=== PATIENT | male | born 1980 | race Caucasian/White ===

== ENCOUNTER 2017-12-27 14:59 | Emergency (ER) | payer SELFPAY ==
[2017-12-27] MEDS ORDERED: NORMAL SALINE 1000 ML 1,000 ML IV ONE (16:28)
--- NOTE | 2017-12-27 16:34 | ER Document Report ---
ED Medical Screen (RME) - General Chief Complaint: Leg Pain Stated Complaint: WEAKNESS, LEG PAIN, FEVER Time Seen by Provider: 12/27/17 16:28 Notes: Patient states that he has a history of IV drug abuse and is currently on Suboxone. He states he comes in today because he has severe bilateral calf pain. He also states recently had a fever of 104 and was started on antibiotics. He states he was not told what the infection was however he went to an chief marketing officer with eye pain. He states the chief marketing officer told him that he had shingles around his left eye and that he should stop the antibiotic and start taking an antiviral. On exam patient is noticed to have a heart murmur. Mom also states that recently patient has had some confusion. TRAVEL OUTSIDE OF THE [place] IN LAST 30 DAYS: No - Related Data Allergies/Adverse Reactions: No Known Allergies Allergy (Verified 12/27/17 15:01) Past Medical History - Social History Chew tobacco use (# tins/day): No Frequency of alcohol use: None Drug Abuse: None Renal/ Medical History: Denies: Hx Peritoneal Dialysis - Immunizations Hx Diphtheria, Pertussis, Tetanus Vaccination: Yes Physical Exam - Vital signs Vitals: Temp Pulse Resp BP Pulse Ox 99.1 F 110 H 18 116/55 L 100 12/27/17 15:11 12/27/17 15:11 12/27/17 15:11 12/27/17 15:11 12/27/17 15:11 Course - Vital Signs Vital signs: Temp Pulse Resp BP Pulse Ox 99.1 F 110 H 18 116/55 L 100 12/27/17 15:11 12/27/17 15:11 12/27/17 15:11 12/27/17 15:11 12/27/17 15:11 Doctor's Discharge - Discharge Referrals: MATT HUNTLEY MD [Primary Care Provider] - Follow up as needed
[2017-12-27 17:38] LABS: APPEARANCE,URINE CLEAR; BILIRUBIN,URINE NEGATIVE (NEGATIVE); COLOR,URINE YELLOW; GLUCOSE, URINE NEGATIVE (NEGATIVE); KETONES,URINE NEGATIVE (NEGATIVE); LEUKOCYTE ESTERASE,URINE NEGATIVE (NEGATIVE); NITRITE,URINE NEGATIVE (NEGATIVE); PROTEIN,URINE NEGATIVE (NEGATIVE); URINE SPECIFIC GRAVITY 1.015
[2017-12-27 18:07] LABS: ABSOLUTE BASOPHILS # (AUTO) 0.1 10^3/uL (0.0-0.2); ABSOLUTE EOSINOPHILS # (AUTO) 0.1 10^3/uL (0.0-0.6); ABSOLUTE LYMPHOCYTES (AUTO) 1.4 10^3/uL (0.5-4.7); ABSOLUTE MONOCYTES (AUTO) 0.9 10^3/uL (0.1-1.4); ABSOLUTE NEUT (AUTO) 11.4 10^3/uL (1.7-8.2); BASOPHILS % (AUTO) 0.4 % (0-2); EOSINOPHILS % (AUTO) 0.9 % (0-6); HEMATOCRIT 36.7 % (37.9-51.0); LYMPHOCYTES % (AUTO) 9.8 % (13-45); MEAN CORPUSCULAR HEMOGLOBIN 28.2 pg (27.0-33.4); MEAN CORPUSCULAR HGB CONC 32.5 g/dL (32.0-36.0); MEAN CORPUSCULAR VOLUME 87 fl (80-97); MONOCYTES % (AUTO) 6.7 % (3-13); PLATELET COUNT 372 10^3/uL (150-450); RED BLOOD COUNT 4.23 10^6/uL (4.35-5.55); RED CELL DISTRIBUTION WIDTH 13.2 % (11.5-14.0); SEGMENTED NEUTROPHILS % (AUTO) 82.2 % (42-78); TOTAL CELLS COUNTED % (AUTO) 100 %; WHITE BLOOD COUNT 13.9 10^3/uL (4.0-10.5)
[2017-12-27 18:08] LABS: VENOUS BLOOD BASE EXCESS 4.3 mmol/L; VENOUS BLOOD HCO3 30.4 mmol/L (20-32); VENOUS BLOOD PH 7.4 (7.30-7.42)
[2017-12-27 18:24] LABS: ALANINE AMINOTRANSFERASE 18 U/L (21-72); ALBUMIN 3.5 g/dL (3.5-5.0); ALKALINE PHOSPHATASE 68 U/L (38-126); ANION GAP 13 (5-19); ASPARTATE AMINO TRANSFERASE 14 U/L (17-59); BILIRUBIN,DIRECT 0.1 mg/dL (0.0-0.4); BILIRUBIN,TOTAL 0.6 mg/dL (0.2-1.3); BLOOD UREA NITROGEN 8 mg/dL (7-20); CALCIUM 9.2 mg/dL (8.4-10.2); CARBON DIOXIDE 29 mmol/L (22-30); CHLORIDE 97 mmol/L (98-107); GLUCOSE 87 mg/dL (75-110); POTASSIUM 4.3 mmol/L (3.6-5.0); SODIUM 139.3 mmol/L (137-145); TOTAL PROTEIN 6.6 g/dL (6.3-8.2)
[2017-12-27 18:27] LABS: CREATINE KINASE < 20 U/L (55-170)
[2017-12-27] MEDS ORDERED: MORPHINE SULFATE 10 MG/ML INJ IV PRN (19:53)
--- NOTE | 2017-12-27 19:58 | ER Document Report ---
ED General - General Chief Complaint: Leg Pain Stated Complaint: WEAKNESS, LEG PAIN, FEVER Time Seen by Provider: 12/27/17 16:28 Notes: Patient is a 37-year-old male with a past medical history of IV heroin use currently in remission who presents with 3 weeks of intermittent fever, several days of progressively worsening bilateral lower extremity pain. Patient states that at his popliteal pulses bilaterally he has a severe, constant, throbbing pain. Nothing improves or worsens his pain. He denies any history of similar symptoms in the past. He reports that his intermittent had fevers over the last 3 weeks to 104.2F. He has associated nausea but no vomiting. He does admit to intermittent shortness of breath worsened by exertion. He has not seen his primary care doctor regarding these concerns. He has no prior cardiac history. TRAVEL OUTSIDE OF THE [place] IN LAST 30 DAYS: No - Related Data Allergies/Adverse Reactions: No Known Allergies Allergy (Verified 12/27/17 15:01) Past Medical History - General Information source: Patient, Relative - Social History Smoking Status: Current Every Day Smoker Chew tobacco use (# tins/day): No Frequency of alcohol use: None Drug Abuse: None, Heroin Lives with: Parents Family History: Reviewed & Not Pertinent Patient has suicidal ideation: No Patient has homicidal ideation: No Renal/ Medical History: Denies: Hx Peritoneal Dialysis - Immunizations Hx Diphtheria, Pertussis, Tetanus Vaccination: Yes Review of Systems - Review of Systems Notes: Constitutional: Negative for fever. HENT: Negative for sore throat. Eyes: Negative for visual changes. Cardiovascular: Negative for chest pain. Respiratory: Negative for shortness of breath. Gastrointestinal: Negative for abdominal pain, vomiting or diarrhea. Genitourinary: Negative for dysuria. Musculoskeletal: Negative for back pain. Skin: Negative for rash. Neurological: Negative for headaches, weakness or numbness. 10 point ROS negative except as marked above and in HPI. Physical Exam - Vital signs Vitals: Temp Pulse Resp BP Pulse Ox 99.1 F 110 H 18 116/55 L 100 12/27/17 15:11 12/27/17 15:11 12/27/17 15:11 12/27/17 15:11 12/27/17 15:11 Notes: PHYSICAL EXAMINATION: GENERAL: Appears extremely uncomfortable, writhing around the bed. HEAD: Atraumatic, normocephalic. EYES: Pupils equal round and reactive to light, extraocular movements intact, sclera anicteric, conjunctiva are normal. ENT: nares patent, oropharynx clear without exudates. Moderately dry mucous membranes. NECK: Normal range of motion, supple without lymphadenopathy LUNGS: Breath sounds clear to auscultation bilaterally and equal. No wheezes rales or rhonchi. HEART: Regular tachycardia, systolic ejection murmur 4 out of 6 ABDOMEN: Soft, nontender, normoactive bowel sounds. No guarding, no rebound. No masses appreciated. EXTREMITIES: Normal range of motion, trace edema in the bilateral lower extremities. Exquisite pain on palpation of the popliteal fossa bilaterally NEUROLOGICAL: No focal neurological deficits. Moves all extremities spontaneously and on command. PSYCH: Moderately anxious SKIN: Warm, Dry, normal turgor, no rashes or lesions noted. Course - Re-evaluation Re-evalutation: 12/27/17 19:56 This is a unusual presentation of a very ill-appearing 37-year-old male with a history of IV drug abuse, new onset murmur that appears to be loudest over the tricuspid vs aortic valave. This is very worrisome for possible endocarditis. Patient has had a fever up to 104.2F most recently 3 days ago. He is afebrile here although does have notable tachycardia in the 120s at time of my assessment. He has had zoster of the left eye and periorbital region and is currently on acyclovir for that. He states his last IV drug use was approximately 2 months ago and is currently on Suboxone. Patient has marked pain in the popliteal fossa bilaterally and is writhing around in pain in the bed. This to be an unusual presentation of septic emboli but is a consideration. Does not have any significant lower extremity edema to suggest a DVT but I will proceed with a venous Doppler to further assess. CK is normal and does not suggest an acute rhabdomyolysis or compartment syndrome. Will obtain 3 sets of blood cultures, await results of venous Doppler, add on troponin and BNP, obtain a chest x-ray, provide analgesia, IV fluids and continue to reassess the patient frequently. 12/27/17 20:56 Patient continues to have significant pain despite morphine analgesia. His labs are returning and are increasingly worrisome for endocarditis. He has an elevated proBNP as well as an elevated troponin. This would be extraordinarily unusual in an otherwise healthy 37-year-old male who is not complaining of any chest pain. Am awaiting an echocardiogram and a venous Doppler of bilateral lower extremities. He has been started on cefepime and vancomycin. I have contacted [facility] for transfer as we do not have infectious disease support, no current cardiology coverage, and no thoracic surgery. 12/27/17 21:21 I placed a left EJ to attempt get more blood for additional cultures. There is enough blood to obtain an additional culture. The line flows well but I am unable to draw back a significant quantity of blood. This will make to total blood cultures and ideally I would like a third but I do not want to delay antibiotics any further so we will begin vancomycin and cefepime at this time. Awaiting callback from [facility]. The patient's pain is improved at this time with 8 milligrams of morphine. He remains tachycardic but without hypotension or altered mental status. 12/27/17 21:30 I have spoken to Dr. Matthews the hospitalist at [facility] and he has accepted the patient for transfer. He has requested that we withhold antibiotics until the patient arrives [facility] unless there will be a delay of transfer to [facility]. The transfer center coordinator has informed that they do not currently have any beds and they do anticipate a significant delay in care. Will proceed with IV antibiotics if there is any significant delay. 12/27/17 22:39 Dopplers of the bilateral lower extremities show arterial occlusions in the bilateral popliteal arteries, consistent with showering emboli for the left side of the heart. mechanical maintenance technician also notes vegitations vs bicuspid aortic valve. Lovenox will be started. I have called and provided an update to [facility]. 12/28/17 02:14 Patient has remained hemodynamically within acceptable limits. Transport has arrived for patient transfer. He is appropriate for transport at this time. - Vital Signs Vital signs: Temp Pulse Resp BP Pulse Ox 99.8 F 110 H 23 H 133/65 H 98 12/28/17 01:51 12/27/17 15:11 12/28/17 01:01 12/28/17 01:01 12/28/17 01:01 - Laboratory Result Diagrams: 12/27/17 17:51 12/27/17 17:51 Laboratory results interpreted by me: 12/27/17 12/27/17 12/27/17 16:50 17:51 17:51 WBC 13.9 H RBC 4.23 L Hgb 12.0 L Hct 36.7 L Seg Neutrophils % 82.2 H Lymphocytes % 9.8 L Absolute Neutrophils 11.4 H Chloride 97 L AST 14 L ALT 18 L Creatine Kinase < 20 L NT-Pro-B Natriuret Pep Urine Blood SMALL H Urine Urobilinogen 2.0 H 12/27/17 17:51 WBC RBC Hgb Hct Seg Neutrophils % Lymphocytes % Absolute Neutrophils Chloride AST ALT Creatine Kinase NT-Pro-B Natriuret Pep 2260 H Urine Blood Urine Urobilinogen - Diagnostic Test Radiology reviewed: Image reviewed, Reports reviewed Radiology results interpreted by me: 12/27/17 21:31 Chest x-ray: No acute infiltrate or pneumothorax - EKG Interpretation by Me Additional EKG results interpreted by me: 12/27/17 21:32 Sinus tachycardia. Rate 109. LVH. No ST elevations or depressions. QTC is 475. Critical Care Note - Critical Care Note Total time excluding time spent on procedures (mins): 48 Comments: Critical care time spent obtaining history from patient or surrogate, discussions with consultants, development of treatment plan with patient or surrogate, evaluation of patient's response to treatment, examination of patient , ordering and performing treatments and interventions, ordering and review of laboratory studies, re-evaluation of patient's condition, ordering and review of radiographic studies and review of old charts Discharge - Discharge Clinical Impression: Occlusion of popliteal artery Endocarditis Qualifiers: Endocarditis type: infective Infective endocarditis organism: bacterial Chronicity: acute Qualified Code(s): I33.0 - Acute and subacute infective endocarditis Congestive heart failure Qualifiers: Heart failure type: unspecified Heart failure chronicity: acute Qualified Code( s): I50.9 - Heart failure, unspecified Sepsis Qualifiers: Sepsis type: sepsis due to unspecified organism Qualified Code(s): A41.9 - Sepsis, unspecified organism Condition: Fair Disposition: [facility] Referrals: MATT HUNTLEY MD [Primary Care Provider] - Follow up as needed
[2017-12-27] MEDS ORDERED: NORMAL SALINE 1000 ML 500 ML IV ONE (20:04)
--- NOTE | 2017-12-27 20:49 | RADIOLOGY REPORT (SQ) ---
EXAM DESCRIPTION: CHEST SINGLE VIEW COMPLETED DATE/TIME: 12/27/2017 8:06 pm REASON FOR STUDY: sob COMPARISON: 07/28/2011 EXAM PARAMETERS: NUMBER OF VIEWS: One view. TECHNIQUE: Single frontal radiographic view of the chest acquired. RADIATION DOSE: NA LIMITATIONS: None. FINDINGS: LUNGS AND PLEURA: No opacities, masses or pneumothorax. No pleural effusion. MEDIASTINUM AND HILAR STRUCTURES: No masses. Contour normal. HEART AND VASCULAR STRUCTURES: Heart normal in size. Normal vasculature. BONES: No acute findings. HARDWARE: None in the chest. OTHER: No other significant finding. IMPRESSION: NO ACUTE RADIOGRAPHIC FINDING IN THE CHEST. TECHNICAL DOCUMENTATION: JOB ID: [id number] [employer]- All Rights Reserved Reading location - IP/workstation name: [email or web address]
[2017-12-27 20:50] LABS: TROPONIN I 0.068 ng/mL
[2017-12-27] MEDS ORDERED: VANCOMYCIN HCL INJ 1000 MG VIAL IV ONE (20:54)
[2017-12-27] MEDS ORDERED: CEFEPIME 2 GM/D5W RTU 2 GM/50 ML RTUPB IV ONE (20:54)
[2017-12-27] MEDS: MORPHINE SULFATE 10 MG/ML INJ IV PRN ×2 (21:03→23:15)
[2017-12-27] MEDS ORDERED: ENOXAPARIN SODIUM INJ 80 MG/0.8 ML DISP.SYRIN SUBCUT SCH (22:45)
--- NOTE | 2017-12-27 23:12 | RADIOLOGY REPORT (SQ) ---
EXAM DESCRIPTION: VENOUS BILATERAL LOWER COMPLETED DATE/TIME: 12/27/2017 10:59 pm REASON FOR STUDY: leg pain bilateral COMPARISON: None. TECHNIQUE: Dynamic and static harper scale and color images acquired of both lower extremity venous sy stems. Selected spectral images acquired with additional compression and augmentation maneuvers. Imag es stored on PACS. LIMITATIONS: None. FINDINGS: RIGHT LEG COMMON FEMORAL AND FEMORAL: Normal phasicity, compression and augmentation. No visualized echogenic m aterial on harper scale. No defects on color images. POPLITEAL: Normal compression and augmentation. No visualized echogenic material on harper scale. No de fects on color images. CALF VESSELS: Normal compression and augmentation. No visualized echogenic material on harper scale. No defects on color image. GSV AND SSV: Normal compression. No visualized echogenic material on harper scale. No defects on color images. ANY DEEP VENOUS INSUFFICIENCY: Not evaluated. ANY EVIDENCE OF POPLITEAL CYST: No. OTHER: No other significant finding. LEFT LEG COMMON FEMORAL AND FEMORAL: Normal phasicity, compression and augmentation. No visualized echogenic m aterial on harper scale. No defects on color images. POPLITEAL: Normal compression and augmentation. No visualized echogenic material on harper scale. No de fects on color images. CALF VESSELS: Normal compression and augmentation. No visualized echogenic material on harper scale. No defects on color images. GSV AND SSV: Normal compression. No visualized echogenic material on harper scale. No defects on color images. ANY DEEP VENOUS INSUFFICIENCY: Not evaluated. ANY EVIDENCE POPLITEAL CYST: No. OTHER: No other significant finding. IMPRESSION: NO EVIDENCE DVT OR SVT IN EITHER LEG. TECHNICAL DOCUMENTATION: JOB ID: [id number] [place]-72 2010 [employer]- All Rights Reserved Reading location - IP/workstation name: [email or web address]
--- NOTE | 2017-12-27 23:57 | EKG REPORT ---
SEVERITY:- ABNORMAL ECG - SINUS TACHYCARDIA CONSIDER LEFT VENTRICULAR HYPERTROPHY : Confirmed by: Kelli Kingsley 27-Dec-2017 23:57:02
[2017-12-28 01:52] VITALS: BP 133/65
--- NOTE | 2017-12-28 13:01 | XCELERA REPORT ---
[address] [address] Transthoracic Echocardiogram Report Name: TOM BLANCO Age: 37 yrs Gender: Male : 1980 Patient Status: Emergency Patient Location: ER Study Date: 12/27/2017 09:37 PM Height: 68 in Weight: 159 lb BSA: 1.9 m2 Procedure: A complete two-dimensional transthoracic echocardiogram was performed (2D, M-mode, spectral and color flow Doppler). The study was technically difficult with many images being suboptimal in quality. Reason For Study: eval endocarditis Ordering Physician: BALDEMAR GREEN Performed By: Kristi Worthy Interpretation Summary Suspected aortic valvular vegetation, however not well visualised. REC YOKO The Ejection Fraction estimate is 50-55% Left ventricular systolic function is borderline reduced. LV diastolic function could not be adequately assessed. There is borderline concentric left ventricular hypertrophy. The left ventricle is grossly normal size. Wall motion cannot be accurately commented on, but no definite regional wall motion abnormalities noted. The right ventricular systolic function is normal. The right atrium is normal in size The left atrial size is normal. There is a trace amount of mitral regurgitation There is no mitral valve stenosis. There is a moderate to severe amount of aortic regurgitation There is no aortic valve stenosis There is a mild amount of tricuspid regurgitation There is mild pulmonary hypertension by echo Right ventricular systolic pressure is estimated to be elevated at 30- 40mmHg. The pulmonic valve is not well visualized. The aortic root is not well visualized. The inferior vena cava appeared normal and decreased > 50% with respiration (RAP 5-10 mmHg) There is no pericardial effusion. MMode/2D Measurements & Calculations RVDd: 2.1 cm LVIDd: 5.5 cmFS: 25.4 % Ao root diam: 2.8 cm IVSd: 0.96 cm LVIDs: 4.1 cmEDV(Teich): 146.6 ml LVPWd: 1.0 cmESV(Teich): 74.0 ml Ao root area: 6.0 cm2 EF(Teich): 49.5 % LA dimension: 3.7 cm LVOT diam: 2.2 cm LVOT area: 3.9 cm2 Doppler Measurements & Calculations MV E max ronald: MV P1/2t max ronald: Ao V2 max: AI max ronald: 117.2 cm/sec 117.9 cm/sec 287.4 cm/sec 420.7 cm/sec MV P1/2t: 48.6 msec Ao max PG: AI max PG: MVA(P1/2t): 4.5 cm2 33.1 mmHg 71.1 mmHg MV dec slope: Ao V2 mean: AI dec slope: 711.1 cm/sec2 204.2 cm/sec 731.9 cm/sec2 Ao mean PG: AI P1/2t: 19.1 mmHg 168.3 msec Ao V2 VTI: 45.7 cm GREGORY(I,D): 2.1 cm2 GREGORY(V,D): 2.0 cm2 LV V1 max PG: SV(LVOT): 96.0 ml PA V2 max: TR max ronald: 9.0 mmHg 93.8 cm/sec 253.8 cm/sec LV V1 mean PG: PA max PG: TR max P.3 mmHg 3.5 mmHg 25.8 mmHg LV V1 max: 149.7 cm/sec LV V1 mean: 105.6 cm/sec LV V1 VTI: 24.5 cm Left Ventricle The left ventricle is grossly normal size. There is borderline concentric left ventricular hypertrophy. Left ventricular systolic function is borderline reduced. The Ejection Fraction estimate is 50-55%. LV diastolic function could not be adequately assessed. Wall motion cannot be accurately commented on, but no definite regional wall motion abnormalities noted. Right Ventricle The right ventricle is grossly normal size. There is normal right ventricular wall thickness. The right ventricular systolic function is normal. Atria The right atrium is normal in size. The left atrial size is normal. Interarterial septum not well visualized and not well dopplered. Cannot comment on ASD/PFO presence. Mitral Valve The mitral valve is grossly normal. A vegetation on the mitral valve cannot be excluded. There is no mitral valve stenosis. There is a trace amount of mitral regurgitation. Aortic Valve The aortic valve is not well visualized secondary to technical limitations. Cannot exclude aortic valvular vegetation. There is no aortic valve stenosis. There is a moderate to severe amount of aortic regurgitation. Tricuspid Valve The tricuspid valve is not well visualized secondary to technical limitations. There is no tricuspid stenosis. There is a mild amount of tricuspid regurgitation. There is mild pulmonary hypertension by echo. Right ventricular systolic pressure is estimated to be elevated at 30- 40mmHg. Pulmonic Valve The pulmonic valve is not well visualized. Great Vessels The aortic root is not well visualized. The inferior vena cava appeared normal and decreased > 50% with respiration (RAP 5-10 mmHg). Effusions There is no pericardial effusion. : BALDEMAR GREEN > Kelli Kingsley
== END 2017-12-28 02:21 | disposition short-term general hospital (02) ==
LOC: ER 14:59
DX: A41.9 Sepsis, unspecified organism (principal); I74.3 Embolism and thrombosis of arteries of the lower extremities; I33.0 Acute and subacute infective endocarditis; I50.9 Heart failure, unspecified; R50.9 Fever, unspecified; M79.604 Pain in right leg; M79.605 Pain in left leg; R11.0 Nausea; R06.02 Shortness of breath; F17.200 Nicotine dependence, unspecified, uncomplicated; R01.1 Cardiac murmur, unspecified; F19.10 Other psychoactive substance abuse, uncomplicated
CPT/HCPCS: 93005; 96376; 99291; 96372; 96361; 96375; 96365; 96366; 96367; 36415; 87040; 87086; 82550; 85025; 87077; 80053; 81001; 84484; 86701; 82803; 83605; 83880; 93306; 93970; 71045; 93010; J2270; J7030; J3370; J0692; 87186